=== PATIENT | male | born 2000 | race Caucasian/White ===

== ENCOUNTER 2023-05-08 17:33 | Emergency (ER) | payer BC ==
[~2023-05-08] VITALS: Ht 190.5 cm; Wt 127.6 kg
[2023-05-08 17:54] VITALS: BP 145/94; PULSE 128; RESP 20; TEMP 102.3; O2SAT 96
[2023-05-08] MEDS ORDERED: IBUPROFEN 600 MG TAB PO ONE (19:35)
[2023-05-08] MEDS ORDERED: DEXAMETHASONE 4 MG/ML VIAL PO ONE (19:35)
[2023-05-08] MEDS ORDERED: AZIT500T8 PO (19:37)
[2023-05-08] MEDS ORDERED: IBUP-2213 PO (19:38)
[2023-05-08] MEDS ORDERED: BENZ-300 PO (19:38)
[2023-05-08 20:13] VITALS: BP 128/78; PULSE 82; RESP 16; TEMP 98.2; O2SAT 99
--- NOTE | 2023-05-08 20:13 | NUR ---
Patient discharged with v/s stable. Written and verbal after care instructions given and explained. Patient alert, oriented and verbalized understanding of instructions. Ambulatory with steady gait. All questions addressed prior to discharge. ID band removed. Patient advised to follow up with PMD. Rx of AZITHROMYCIN, CEPACOL \THROAT LOZENGE, MOTRIN given. Patient educated on indication of medication including possible reaction and side effects. Opportunity to ask questions provided and answered.
== END 2023-05-08 20:13 | disposition home or self-care (01) ==
LOC: MED 17:33
DX: J03.90 Acute tonsillitis, unspecified (principal); B96.89 Other specified bacterial agents as the cause of diseases classified elsewhere; Z79.899 Other long term (current) drug therapy; Z20.822 Contact with and (suspected) exposure to COVID-19
CPT/HCPCS: 86308; 87426; 87804; 99283; J1100